=== PATIENT | female | born 1950 | race Asian ===

== ENCOUNTER → 2017-06-05 | Outpatient (CLI) | payer MEDICARE, OTHER ==
--- NOTE | 2017-06-05 14:43 | RAD ---
Bone densitometry scan, 06/05/2017: History: Ovarian failure screening The lumbar spine and right hip were examined utilizing a DEXA technique. The bone mineral density lumbar spine as measured from the L1-L4 levels is 1.12 g/sq cm. This yields a T score of -0.5 which is in the normal range. The lumbar spine T score on the 12/22/2008 exam was -0.3. The total T score at the right hip is 0.2 which is also in the normal range. The right hip T score on the previous study was 0.4. IMPRESSION: Continued normal bone mineral density measurements.
== END | disposition home or self-care (01) ==
LOC: DXRAD 13:23
PROVIDERS: ATTEND Family Medicine
DX: Z13.820 Encounter for screening for osteoporosis (principal); Z78.0 Asymptomatic menopausal state; E28.39 Other primary ovarian failure
CPT/HCPCS: 77080

== ENCOUNTER 2018-05-29 18:14 | Inpatient (IN) | payer MEDICARE, OTHER ==
[~2018-05-29] VITALS: Ht 160 cm; Wt 57.2 kg
[2018-05-29] MEDS ORDERED: IV NORMAL SALINE 1,000ML 1,000 ML IV ONE (18:45)
[2018-05-29] MEDS ORDERED: NITROGLYCERIN OINT 1 GM PACKET. TP ONE (18:45)
[2018-05-29] MEDS ORDERED: ASPIRIN 325 MG TABLET PO ONE (18:45)
--- NOTE | 2018-05-29 19:08 | PHYS DOC ---
Past History Past Medical History: Arrhythmia Past Surgical History: Cholecystectomy, Hysterectomy Smoking: Non-smoker Drug Use: None Adult General Chief Complaint Chief Complaint: CHEST PAIN HPI HPI Patient is 68 yo female who presents with complaint of chest pressure beginning at 1810 that started as she was getting out of the shower. Patient says she began to feel chest tightness, did not take any medication, and had her drive her her to hospital. Pt reports that she has had previous episodes of "irregular heartbeat" and follows with industrial engineering manager, whom she has an appointment with next week. She did not take an aspirin when the pain began. She has had indigestion before and says this episode feels different than her indigestion. She denies radiation of pain but does say that when the chest pressure began she had some shortness of breath. She denies shortness of breath , vomiting, extremity swelling, or headaches. She also denies recent travel but does state that she takes po estrogen following HAKEEM. Reports associated dizziness and nausea. Review of Systems Review of Systems Constitutional: Denies fever; admits chills Eyes: Denies change in visual acuity, redness, or eye pain [] HENT: Denies nasal congestion or sore throat [] Respiratory: Denies cough; admits shortness of breath Cardiovascular: Admits to chest pressure; occasional palpitations GI: Denies abdominal pain, vomiting, or diarrhea; reports nausea : Denies dysuria or hematuria [] Musculoskeletal: Denies back pain or joint pain [] Neurologic: Denies headache, focal weakness or sensory changes; reports dizziness Complete systems were reviewed and found to be within normal limits, except as documented in this note. Family History Family History Pt adopted and does not know bio family hx Current Medications Current Medications Current Medications Medications (Trade) Dose Ordered Sig/[facility] Start Time Stop Time Status Last Admin Dose Admin Aspirin (Maxwell Aspirin) 325 mg 1X ONCE 05/29/18 18:45 05/29/18 18:46 DC 05/29/18 18:49 325 MG Nitroglycerin (Nitro-Bid Oint) 0.5 inch 1X ONCE 05/29/18 18:45 05/29/18 18:46 DC 05/29/18 18:49 0.5 INCH Sodium Chloride 1,000 ml @ 1,000 mls/hr 1X ONCE 05/29/18 18:45 05/29/18 19:44 05/29/18 18:49 1,000 MLS/HR Allergies Allergies Allergies Coded Allergies Type Severity Reaction Last Updated Verified metoclopramide Allergy Unknown 05/29/18 Yes Physical Exam Physical Exam Constitutional: Well developed, well nourished, non-toxic appearance. [] HENT: Normocephalic, atraumatic, oropharynx moist, face symmetric, Eyes: PERRL, EOMI, conjunctiva normal, no discharge. Neck: Normal range of motion, supple, no stridor. [] Cardiovascular: Heart rate regular rhythm, no murmur Lungs & Thorax: Bilateral breath sounds clear to auscultation, no sternal tenderness to palpation [] Abdomen: Soft, mild epigastric tenderness Skin: Warm, dry, no erythema, no rash. [] Extremities: No tenderness, ROM intact, no edema. [] Neurologic: Alert and oriented X 3, normal motor function, normal sensory function, no focal deficits noted. Face symmetric, speech articulate, no vertical or horizontal nystagmus, muscle strength UE/LE 5/5. [] Current Patient Data Vital Signs Vital Signs Date Time Temp Pulse Resp B/P (MAP) Pulse Ox O2 Delivery O2 Flow Rate FiO2 05/29/18 18:49 68 166/61 EKG EKG @1830 HR 68 BPM, irregular rhythm. [] Radiology/Procedures Radiology/Procedures PROCEDURE: CT HEAD WO CONTRAST PQRS Compliance statement: One or more of the following individualized dose reduction techniques were utilized for this examination: 1. Automated exposure control. 2. Adjustment of the mA and/or kV according to patient size. 3. Use of iterative reconstruction technique. Indication:dizziness
TECHNIQUE: CT head without IV contrast COMPARISON:None FINDINGS: No pathologic extra-axial or intra-axial fluid collection. Mild diffuse cerebral atrophy. The ventricles and basal cisterns are within normal limits. No acute intracranial bleed. No focal loss of shafer-white differentiation. The orbits are within normal limits. No suspicious bony lesion. Visualized paranasal sinuses and mastoid air cells are clear. IMPRESSION: 1. No acute intracranial process. If concern for acute ischemic stroke is high, please consider MRI brain. Electronically signed by: Valente Delaney DO (05/29/2018 8:55 PM) [facility] PROCEDURE: CT ANGIOGRAPHY CHEST CT ANGIOGRAPHY CHEST Indication: chest pain, dizziness, elevated DDimer
Gave Omni 350 100ml iv
no medical hx
. Comparison: No comparison is available. Technique: After intravenous contrast administration, CT imaging was performed of the chest. MIP reconstructions were obtained. Exposure: One or more of the following individualized dose reduction techniques were utilized for this examination: 1. Automated exposure control 2. Adjustment of the mA and/or kV according to patient size 3. Use of iterative reconstruction technique. FINDINGS: Pulmonary arteries: No evidence of pulmonary embolism. Thoracic aorta: No evidence of aortic aneurysm. Thyroid gland: Visualized aspect is unremarkable. Lymph nodes: No significant enlargement Heart: No significant pericadial effusion. Esophagus: Unremarkable Pleural spaces: No significant effusion Lungs: No dominant airspace consolidation or large mass. Trachea and central airways: Patent Bones: No destructive process Upper abdomen: Slices through the upper abdomen are limited due to the technique. No obvious acute findings. External Soft Tissue: No acute findings. IMPRESSION: No evidence of pulmonary embolism or other acute abnormality. Electronically signed by: Germain Flower MD (05/29/2018 8:55 PM) [facility] Course & Med Decision Making Course & Med Decision Making Pt is 68 yo nonsmoking female with "irregular heart beat" who follows with a industrial engineering manager who presents to ED with acute onset nonradiating chest pressure, nausea, and dizziness beginning at 1810. She has had similar events in the past , was diagnosed with an arrhythmia from her industrial engineering manager however physician did not start medication. Physical exam significant for minimally elevated BP (166/ 61) and mild epigastric tenderness. EKG unremarkable. Labs significant for K 2.9 (given PO replacement) and elevated D-dimer. CT angio and CT head unremarkable. Patient given PO potassium, aspirin, nitro paste, fluids, zofran, and GI cocktail with no symptomatic relief. Pt voiced concern for worsening dizziness, new onset "tingling" down both legs, and concern about returning home. Although patient has minimal cardiovascular risk factors, HEART score 3 ( 1 pt hx, 1pt age> 65), and imaging is clear patient is complaining of worsening symptoms unresponsive to therapy. Discussed with patient that although she has appointment with industrial engineering manager in one week, her symptoms have become worse while in ED and admission for further workup is appropriate. Patient and voiced understanding and agreed with plan. Patient requiring admission for further evaluation and treatment. Discussed with Dr. Heath (hospitalist) who is in agreement with admission. Discussed findings and plan with patient and family, who acknowledge understanding and agreement. Dragon Disclaimer Dragon Disclaimer This electronic medical record was generated, in whole or in part, using a voice recognition dictation system. Departure Departure: Impression: Primary Impression: Chest pain Additional Impressions: Dizziness Hypokalemia Disposition: ADMITTED INPATIENT (Inpatient tele) Admitting Physician: Lucia Heath Condition: STABLE Referrals: BRANDON GUTIERREZ MD (PCP) Problem Qualifiers Primary Impression: Chest pain Chest pain type: unspecified Qualified Codes: R07.9 - Chest pain, unspecified GERMAIN BATES DO May 29, 2018 19:08
[2018-05-29 19:10] LABS: BASO % 1 % (0-3); EOS # 0.1 x10^3/uL (0.0-0.7); EOS % 2 % (0-3); HEMATOCRIT 40.3 % (36.0-47.0); HEMOGLOBIN 13.6 g/dL (12.0-15.5); LYMPH # 1.9 x10^3/uL (1.0-4.8); LYMPH % 27 % (24-48); MEAN CORPUSCULAR HEMOGLOBIN 32 pg (25-35); MEAN CORPUSCULAR HGB CONC 34 g/dL (31-37); MEAN CORPUSCULAR VOLUME 94 fL (79-100); MONO # 0.4 x10^3/uL (0.0-1.1); MONO % 6 % (0-9); NEUT # 4.6 x10^3uL (1.8-7.7); NEUT % 65 % (31-73); PLATELET COUNT 238 x10^3/uL (140-400); RED BLOOD COUNT 4.28 x10^6/uL (3.50-5.40); RED CELL DISTRIBUTION WIDTH 12.9 % (11.5-14.5); WHITE BLOOD COUNT 7.1 x10^3/uL (4.0-11.0)
[2018-05-29 19:28] LABS: ALBUMIN 4.1 g/dL (3.4-5.0); ALBUMIN/GLOBULIN RATIO 0.9 (1.0-1.7); CREATININE 0.6 mg/dL (0.6-1.0); GFR 99.7; MAGNESIUM 1.8 mg/dL (1.8-2.4); TOTAL BILIRUBIN 0.3 mg/dL (0.2-1.0); TOTAL PROTEIN 8.6 g/dL (6.4-8.2)
[2018-05-29 19:32] LABS: POTASSIUM 2.9 mmol/L (3.5-5.1)
[2018-05-29] MEDS ORDERED: POTASSIUM CHLORIDE 20 MEQ TABLET.ER. PO ONE (19:45)
[2018-05-29] MEDS ORDERED: ONDANSETRON PF 4 MG/2 ML VIAL. IV ONE (20:15)
[2018-05-29] MEDS ORDERED: LIDO:MAALOX 1:1 20 ML SINGLE DOSE. PO ONE (20:15)
[2018-05-29] MEDS ORDERED: IOHEXOL 350 MG/ML 100 ML VIAL. IV ONE (20:30)
--- NOTE | 2018-05-29 20:59 | RAD ---
PQRS Compliance statement: One or more of the following individualized dose reduction techniques were utilized for this examination: 1. Automated exposure control. 2. Adjustment of the mA and/or kV according to patient size. 3. Use of iterative reconstruction technique. Indication:dizziness
TECHNIQUE: CT head without IV contrast COMPARISON:None FINDINGS: No pathologic extra-axial or intra-axial fluid collection. Mild diffuse cerebral atrophy. The ventricles and basal cisterns are within normal limits. No acute intracranial bleed. No focal loss of shafer-white differentiation. The orbits are within normal limits. No suspicious bony lesion. Visualized paranasal sinuses and mastoid air cells are clear. IMPRESSION: 1. No acute intracranial process. If concern for acute ischemic stroke is high, please consider MRI brain. Electronically signed by: Valente Delaney DO (05/29/2018 8:55 PM) [facility]
--- NOTE | 2018-05-29 21:00 | RAD ---
CT ANGIOGRAPHY CHEST Indication: chest pain, dizziness, elevated DDimer
Gave Omni 350 100ml iv
no medical hx
. Comparison: No comparison is available. Technique: After intravenous contrast administration, CT imaging was performed of the chest. MIP reconstructions were obtained. Exposure: One or more of the following individualized dose reduction techniques were utilized for this examination: 1. Automated exposure control 2. Adjustment of the mA and/or kV according to patient size 3. Use of iterative reconstruction technique. FINDINGS: Pulmonary arteries: No evidence of pulmonary embolism. Thoracic aorta: No evidence of aortic aneurysm. Thyroid gland: Visualized aspect is unremarkable. Lymph nodes: No significant enlargement Heart: No significant pericadial effusion. Esophagus: Unremarkable Pleural spaces: No significant effusion Lungs: No dominant airspace consolidation or large mass. Trachea and central airways: Patent Bones: No destructive process Upper abdomen: Slices through the upper abdomen are limited due to the technique. No obvious acute findings. External Soft Tissue: No acute findings. IMPRESSION: No evidence of pulmonary embolism or other acute abnormality. Electronically signed by: Germain Flower MD (05/29/2018 8:55 PM) [facility]
[2018-05-29 22:10] VITALS: BP 158/68
[2018-05-29] MEDS ORDERED: ONDANSETRON PF 4 MG/2 ML VIAL. IV PRN (22:30)
[2018-05-29] MEDS: ONDANSETRON PF 4 MG/2 ML VIAL. IV PRN (22:42)
[2018-05-29] MEDS: IV NORMAL SALINE 1,000ML 1,000 ML IV SCH (22:42)
[2018-05-29] MEDS: MAG HYDROX/AL HYDROX/SIMETH 30 ML ORAL.SUSP PO PRN (23:19)
[2018-05-29 23:46] VITALS: BP 144/75
[2018-05-30] MEDS ORDERED: TURM538C PO (00:06)
[2018-05-30] MEDS ORDERED: ESTR1PAT87 TD (00:06)
[2018-05-30] MEDS ORDERED: OMEG1CAP6 PO (00:06)
[2018-05-30] MEDS ORDERED: UBID1CAP41 PO (00:06)
[2018-05-30] MEDS ORDERED: LACT1CAP8 PO (00:06)
[2018-05-30] MEDS ORDERED: UBID100C40 PO (00:06)
[2018-05-30] MEDS ORDERED: LORazepam 2 MG/ML VIAL IV PRN (00:15)
[2018-05-30] MEDS ORDERED: HYDROmorphone PF 1 MG/ML DISP.SYRIN IV PRN (00:15)
[2018-05-30] MEDS: PROMETHAZINE 25 MG TABLET. PO PRN ×2 (00:29→10:37)
[2018-05-30 00:52] LABS: CALCIUM 8.2 mg/dL (8.5-10.1); CREATININE 0.6 mg/dL (0.6-1.0); GFR 99.7; POTASSIUM 3.2 mmol/L (3.5-5.1)
[2018-05-30] MEDS: IV NORMAL SALINE 1,000ML 1,000 ML IV SCH ×2 (05:24→17:06)
[2018-05-30] MEDS ORDERED: POTASSIUM CHLORIDE 20 MEQ TABLET.ER. PO ONE ×2 (05:30→08:00)
[2018-05-30 05:52] VITALS: BP 98/52
--- NOTE | 2018-05-30 06:11 | EKG ---
[address] [address] Test Date: 2018-05-29 Test Time: 18:27:13 Pat Name: KI GARCIA Department: Room: Gender: F Torpedo Man: : 1950 Requested By: MALIK BATES Order Number: [id number] Reading MD: Measurements Intervals [place] Rate: 68 P: [place]: QRS: 41 QRSD: 96 T: 56 QT: 408 QTc: 434 Interpretive Statements IRREGULAR RHYTHM, NO P-WAVE FOUND INCOMPLETE RIGHT BUNDLE BRANCH BLOCK QRS(T) CONTOUR ABNORMALITY CONSIDER ANTEROLATERAL MYOCARDIAL DAMAGE POSSIBLY ABNORMAL ECG RI6.01 Unconfirmed report No previous ECG available for comparison
[2018-05-30 08:45] LABS: ALBUMIN 3.1 g/dL (3.4-5.0); ALBUMIN/GLOBULIN RATIO 0.8 (1.0-1.7); CALCIUM 7.4 mg/dL (8.5-10.1); CREATININE 0.6 mg/dL (0.6-1.0); GFR 99.7; POTASSIUM 3.9 mmol/L (3.5-5.1); TOTAL BILIRUBIN 0.5 mg/dL (0.2-1.0); TOTAL PROTEIN 6.9 g/dL (6.4-8.2)
[2018-05-30] MEDS: ONDANSETRON PF 4 MG/2 ML VIAL. IV PRN (10:08)
[2018-05-30] MEDS: MAG HYDROX/AL HYDROX/SIMETH 30 ML ORAL.SUSP PO PRN (10:37)
[2018-05-30 10:52] VITALS: BP 130/76
[2018-05-30] MEDS ORDERED: ASTA4CAP PO (10:59)
[2018-05-30] MEDS ORDERED: CYAN250012 PO (10:59)
[2018-05-30] MEDS ORDERED: CYAN10005 PO (10:59)
[2018-05-30] MEDS ORDERED: CRAN450C PO (10:59)
[2018-05-30] MEDS ORDERED: MAGN100T3 PO (10:59)
--- NOTE | 2018-05-30 13:43 | CARD ---
MR#: [id number] Date of Study: 05/30/2018 Ordering Physician: MAGDIEL GAXIOLA, Referring Physician: MILAN CM Tech: Ameena Trevino TAMAR APPROVED REPORT EXAM: Two-dimensional and M-mode echocardiogram with Doppler and color Doppler. Other Information Quality : AverageHR: 63bpm Rhythm : NSR INDICATION Chest Pain 2D DIMENSIONS RVDd2.1 (2.9-3.5cm)Left Atrium(2D)2.8 (1.6-4.0cm) IVSd0.7 (0.7-1.1cm)Aortic Root(2D)2.6 (2.0-3.7cm) LVDd4.4 (3.9-5.9cm)LVOT Diameter2.0 (1.8-2.4cm) PWd0.6 (0.7-1.1cm)LVDs2.0 (2.5-4.0cm) FS (%) 55.1 %SV75.7 ml LVEF(%)85.9 (>50%) M-Mode DIMENSIONS Left Atrium(MM)2.60 (2.5-4.0cm)Aortic Root2.52 (2.2-3.7cm) Aortic Valve AoV Peak Oziel.133.8cm/sAoV VTI28.1cm AO Peak GR.7.2mmHgLVOT Peak Oziel.92.3cm/s LVOT VTI 22.60cmAO Mean GR.4mmHg ELIZABETH (VMAX)2.82of5MMC (VTI)2.43cm2 Mitral Valve MV E Mxyrjkrm332.0cm/sMV DECEL AJOB102ab MV A Xxnlyjcs65.6cm/sE/A Ratio1.5 MV A [id number] Pulmonary Valve PV Peak Ehvhsflj87.9cm/sPV Peak Grad.4mmHg Tricuspid Valve TR P. Jwtdtnqf297kf/sRAP VROMZGKQ7uaLn TR Peak Gr.25fhUjVRZH45gfDk Pulmonary Vein S1 Nmoohsyt27.7cm/sD2 Yvstocxj92.5cm/s LEFT VENTRICLE The left ventricle is normal size. There is normal left ventricular wall thickness. The left ventricu lar systolic function is normal. The Ejection Fraction is 65-70%. There is normal LV segmental wall m otion. The left ventricular diastolic function and filling is normal for age. RIGHT VENTRICLE The right ventricle is normal size. There is normal right ventricular wall thickness. The right ventr icular systolic function is normal. ATRIA The left atrium size is normal. The right atrium size is normal. The interatrial septum is intact wit h no evidence for an atrial septal defect or patent foramen ovale as noted on 2-D or Doppler imaging. AORTIC VALVE The aortic valve is normal in structure and function. The aortic valve is trileaflet. Doppler and Col or Flow revealed no significant aortic regurgitation. There is no significant aortic valvular stenosi s. MITRAL VALVE The mitral valve is thickened but opens well. A borderline mitral valve prolapse is present. There is no mitral valve stenosis. Doppler and Color-flow revealed trace to mild mitral regurgitation. TRICUSPID VALVE The tricuspid valve is normal in structure and function. Doppler and Color Flow revealed trace tricus pid regurgitation. The PA pressure was estimated at 29 mmHg. There is no tricuspid valve prolapse or vegetation. There is no tricuspid valve stenosis. PULMONIC VALVE Pulmonic valve not well visualized. GREAT VESSELS The aortic root is normal in size. The ascending aorta is normal in size. The IVC is normal in size a nd collapses >50% with inspiration. PERICARDIAL EFFUSION There is no evidence of significant pericardial effusion. Critical Notification Critical Value: No <Conclusion> The left ventricular systolic function is normal. The Ejection Fraction is 65-70%. There is normal LV segmental wall motion. Trace to mild mitral regurgitation. Trace tricuspid regurgitation. The PA pressure was estimated at 29 mmHg. There is no evidence of significant pericardial effusion. Signed by : Murphy Sagastume, Electronically Approved : 05/30/2018 13:41:56
--- NOTE | 2018-05-30 14:47 | PDOC2 ---
CONSULT Date of Admission DATE: 05/30/18 TIME: 0900 Reason for Consult: cp Problem List Problems Medical Problems: (1) Chest pain Status: Acute (2) Dizziness Status: Acute (3) Hypokalemia Status: Acute History of Present Illness Ms Harrison is a 68 year old female who presented to the ED with complaints of chest pain. She does have a history of palpitations for which she follows with Dr Tubbs. She reports onset of chest pain about 1810 while she was getting out of the shower. She says she began to feel chest tightness which was not affected by exertion, position or deep inspiration. She was concerned so had her drive her her to hospital. While in the ED she began to report nausea, shortness of breath and tingling in arms and legs. She was admitted for observation and consult was called. She currently reports continued pain that has been constant since the start. She continues to descirbe the pain as noted above. This am she is nauseated and vomiting as well. She denies any recent illness or sick contacts. She denies fever or chills. she does have an appt next week with her primary planning analyst. She denies congestie symptoms, lightheadedness or syncope.. She also denies recent travel. She takes oral estrogen following HAKEEM multiple vitamins but no other medications Past Medical History palpitations, other shepherd she denies any significant medical history Past Surgical History: Cholecystectomy, Hysterectomy Family History unknown Social History non smoker, no illicit drugs, no significant ETOH Current Medications Current Medications Aspirin (Maxwell Aspirin) 325 mg 1X ONCE PO Last administered on 05/29/18at 18:49 ; Start 05/29/18 at 18:45; Stop 05/29/18 at 18:46; Status DC Sodium Chloride 1,000 ml @ 1,000 mls/hr 1X ONCE IV Last administered on 18:49; Start 05/29/18 at 18:45; Stop 05/29/18 at 19:44; Status DC Nitroglycerin (Nitro-Bid Oint) 0.5 inch 1X ONCE TP Last administered on at 18:49; Start 05/29/18 at 18:45; Stop 05/29/18 at 18:46; Status DC Potassium Chloride (Klor-Con) 40 meq 1X ONCE PO Last administered on at 20:06; Start 05/29/18 at 19:45; Stop 05/29/18 at 19:46; Status DC Multi-Ingredient Mouthwash/Gargle (Gi Cocktail) 20 ml 1X ONCE PO Last administered on 05/29/18at 20:17; Start 05/29/18 at 20:15; Stop 05/29/18 at 20:16 ; Status DC Ondansetron HCl (Zofran) 4 mg 1X ONCE IV Last administered on 05/29/18at 20:18 ; Start 05/29/18 at 20:15; Stop 05/29/18 at 20:16; Status DC Iohexol (Omnipaque 350 Mg/ml) 100 ml 1X ONCE IV Last administered on at 20:27; Start 05/29/18 at 20:30; Stop 05/29/18 at 20:31; Status DC Fentanyl Citrate (Fentanyl 2ml Vial) 25 mcg 1X ONCE IV Last administered on at 21:39; Start 05/29/18 at 21:45; Stop 05/29/18 at 21:46; Status DC Ondansetron HCl (Zofran) 4 mg PRN Q4HRS PRN IV NAUSEA/VOMITING Last administered on 05/30/18at 10:08; Start 05/29/18 at 21:30; Stop 05/30/18 at 21:29 Fentanyl Citrate (Fentanyl 2ml Vial) 25 mcg PRN Q2HR PRN IV PAIN; Start at 21:30; Stop 05/30/18 at 21:29 Sodium Chloride 1,000 ml @ 100 mls/hr Q10H IV Last administered on 05/30/18at 05:24; Start 05/29/18 at 21:27; Stop 05/30/18 at 21:26 Ondansetron HCl (Zofran) 4 mg PRN Q6HRS PRN IV NAUSEA/VOMITING; Start 05/29/18 at 22:30; Stop 05/29/18 at 22:32; Status DC Al Hydroxide/Mg Hydroxide (Mylanta Plus Xs) 30 ml PRN Q2HR PRN PO DYSPEPSIA Last administered on 05/30/18at 10:37; Start 05/29/18 at 22:30 Hydromorphone HCl (Dilaudid) 1 mg PRN Q3HRS PRN IV PAIN; Start 05/30/18 at 00: 15 Promethazine HCl (Phenergan) 25 mg PRN Q6HRS PRN PO NAUSEA/VOMITING Last administered on 05/30/18at 10:37; Start 05/30/18 at 00:15 Lorazepam (Ativan) 0.5 mg PRN Q4HRS PRN IV ANXIETY / AGITATION Last administered on 05/30/18at 00:29; Start 05/30/18 at 00:15 Potassium Chloride (Klor-Con) 40 meq 1X ONCE PO ; Start 05/30/18 at 08:00; Stop 05/30/18 at 08:00; Status DC Potassium Chloride (Klor-Con) 40 meq 1X ONCE PO Last administered on at 05:25; Start 05/30/18 at 05:30; Stop 05/30/18 at 05:31; Status DC Active Scripts Active Reported Vitamin B12 (Cyanocobalamin (Vitamin B-12)) 2,500 Mcg Tab.chew 1,000 Mcg PO DAILY Vitamin B-12 (Cyanocobalamin (Vitamin B-12)) 1,000 Mcg Tablet 1 Tab PO DAILY Magnesium (Magnesium Amino Acid Chelate) 100 Mg Tablet 200 Mg PO TID Cranberry (Cranberry Fruit Concentrate) 450 Mg Capsule 450 Mg PO BID Astaxanthin 4 Mg Capsule 3 Tab PO DAILY Co Q-10 100 Mg Softgel (Ubidecarenone/Vit E Acetate) 1 Each Capsule 1 Each PO DAILY Fish Oil 1,000 Mg Capsule (Mallie-3 Fatty Acids/Fish Oil) 1 Each Capsule 1 Each PO DAILY Probiotic (Lactobacillus Combo No.11) 1 Each Cap.sprink 1 Each PO DAILY Turmeric (Turmeric Root Extract) 538 Mg Capsule 538 Mg PO BID Estradiol 1 Each Patch.tdsw 1 Each TD TWICE WEEKLY Allergies: Coded Allergies: metoclopramide (Verified Allergy, Intermediate, 05/30/18) Review of System as per HPI or negative General: Alert, Oriented X3, mild distress HEENT: Atraumatic, EOMI Lungs: Clear to auscultation, Normal air movement Heart: Regular rate, Normal S1, Normal S2, No murmurs, Other (no gallops, clicks or rubs, + reproducible pain distal 1/2 sternum on palpation) Abdomen: Normal bowel sounds, Soft, Other (mild epigastric tenderness) Extremities: No cyanosis, No edema, Normal pulses Neuro: Normal speech, Strength at 5/5 X4 ext Psych/Mental Status: Mental status NL, Mood NL VITALS Vital Signs Date Time Temp Pulse Resp B/P (MAP) Pulse Ox O2 Delivery O2 Flow Rate FiO2 05/30/18 10:52 97.9 66 18 130/76 (94) 95 Room Air Labs Laboratory Tests Test 05/29/18 18:45 05/30/18 00:30 05/30/18 03:30 05/30/18 08:08 White Blood Count 7.1 x10^3/uL (4.0-11.0) Red Blood Count 4.28 x10^6/uL (3.50-5.40) Hemoglobin 13.6 g/dL (12.0-15.5) Hematocrit 40.3 % (36.0-47.0) Mean Corpuscular Volume 94 fL (79-100) Mean Corpuscular Hemoglobin 32 pg (25-35) Mean Corpuscular Hemoglobin Concent 34 g/dL (31-37) Red Cell Distribution Width 12.9 % (11.5-14.5) Platelet Count 238 x10^3/uL (140-400) Neutrophils (%) (Auto) 65 % (31-73) Lymphocytes (%) (Auto) 27 % (24-48) Monocytes (%) (Auto) 6 % (0-9) Eosinophils (%) (Auto) 2 % (0-3) Basophils (%) (Auto) 1 % (0-3) Neutrophils # (Auto) 4.6 x10^3uL (1.8-7.7) Lymphocytes # (Auto) 1.9 x10^3/uL (1.0-4.8) Monocytes # (Auto) 0.4 x10^3/uL (0.0-1.1) Eosinophils # (Auto) 0.1 x10^3/uL (0.0-0.7) Basophils # (Auto) 0.0 x10^3/uL (0.0-0.2) Prothrombin Time 10.1 SEC (9.4-11.4) Prothromb Time International Ratio 1.0 (0.9-1.1) Activated Partial Thromboplast Time 25 SEC (23-33) Sodium Level 136 mmol/L (136-145) 135 mmol/L (136-145) 137 mmol/L (136-145) Potassium Level 2.9 mmol/L (3.5-5.1) 3.2 mmol/L (3.5-5.1) 3.9 mmol/L (3.5-5.1) Chloride Level 97 mmol/L (98-107) 100 mmol/L (98-107) 104 mmol/L (98-107) Carbon Dioxide Level 25 mmol/L (21-32) 24 mmol/L (21-32) 26 mmol/L (21-32) Anion Gap 14 (6-14) 11 (6-14) 7 (6-14) Blood Urea Nitrogen 27 mg/dL (7-20) 18 mg/dL (7-20) 17 mg/dL (7-20) Creatinine 0.6 mg/dL (0.6-1.0) 0.6 mg/dL (0.6-1.0) 0.6 mg/dL (0.6-1.0) Estimated GFR (Cockcroft-Gault) 99.7 99.7 99.7 BUN/Creatinine Ratio 45 (6-20) 28 (6-20) Glucose Level 130 mg/dL (70-99) 136 mg/dL (70-99) 105 mg/dL (70-99) Calcium Level 9.0 mg/dL (8.5-10.1) 8.2 mg/dL (8.5-10.1) 7.4 mg/dL (8.5-10.1) Magnesium Level 1.8 mg/dL (1.8-2.4) Total Bilirubin 0.3 mg/dL (0.2-1.0) 0.5 mg/dL (0.2-1.0) Aspartate Amino Transf (AST/SGOT) 24 U/L (15-37) 21 U/L (15-37) Alanine Aminotransferase (ALT/SGPT) 41 U/L (14-59) 33 U/L (14-59) Alkaline Phosphatase 92 U/L (46-116) 75 U/L (46-116) Creatine Kinase 104 U/L (26-192) Creatine Kinase MB (Mass) 1.6 ng/mL (0.0-3.6) Creatine Kinase MB Relative Index 1.5 % (0-4) Troponin I Quantitative < 0.017 ng/mL (0-0.055) < 0.017 ng/mL (0-0.055) < 0.017 ng/mL (0-0.055) OZ-Ftw-U-Type Natriuretic Peptide 108 pg/mL (0-124) Total Protein 8.6 g/dL (6.4-8.2) 6.9 g/dL (6.4-8.2) Albumin 4.1 g/dL (3.4-5.0) 3.1 g/dL (3.4-5.0) Albumin/Globulin Ratio 0.9 (1.0-1.7) 0.8 (1.0-1.7) Lipase 165 U/L (73-393) Images CT head- no acute intracranial process CTA- no PE or other acute abn EKG sinus rhythm without acute abn Assessment/Plan CP atypical, [place] ruled out. no acute ekg changes. echo pending, check lipids. continue aspirin. no betablocker due to mild hypotension nausea/vomiting - per PCP mild hypokalemia - replaced and now normal MAGDIEL GAXIOLA SPECIALTY PERSON May 30, 2018 14:47
[2018-05-30 15:28] VITALS: BP 106/62
--- NOTE | 2018-05-30 16:00 | HP ---
ADMIT DATE: 05/29/2018 HISTORY OF PRESENT ILLNESS: The patient is a 68-year-old Swedish [place]ian female patient who came to the Emergency Room complaining of chest pain, mostly epigastric and lower chest while she was getting out of the shower, she stated that she began to feel chest tightness. She has not taken medication and she was brought to the hospital by her . She stated that she has a previous episode of irregular heartbeat and follows with a packer insulation whom she has an appointment with next week. She did not take any aspirin when the pain began. She had had indigestion before and stated that the episodes feels different than her indigestion. She denied any radiation of the pain. Said that she has some nausea, but no vomiting. She has had some shortness of breath, but denied any diaphoresis. She is not on any medication by prescription except her estrogen. She was extensively investigated in the Emergency Room. Her EKG showed that she was in sinus rhythm with a heart rate of 68 beats per minute, has had a CT scan of the head with IV contrast, which basically showed no acute intracranial pressure and CT angio of the chest showed that there is no evidence of pulmonary embolism or acute abnormality and therefore, the patient was admitted to rule out to do more sets of cardiac enzyme and to consult the packer insulation. PAST MEDICAL HISTORY: Unremarkable. PAST SURGICAL HISTORY: Significant for total abdominal hysterectomy and bilateral salpingo-oophorectomy, appendectomy, cholecystectomy, dysphagia, esophagogastroduodenoscopy and colonoscopy. ALLERGIES: SHE IS ALLERGIC TO REGLAN AND FENTANYL. MEDICATIONS: She is currently on following medications: She is on omega 3 fatty acid 1000 mg once a day, magnesium amino acid chelate 200 mg 3 times a day, lactobacillus 1 capsule daily, estradiol 1 patch applied topically twice weekly, cyanocobalamin 1000 mcg once a day, Cyanocobalamin 2000 mcg chewable tablet once a day. Astaxanthin 4 mg once a day, cranberry fruit concentrate 450 mg p.o. b.i.d., turmeric root extract 538 mg twice a day and CoQ10 100 mg soft gel one tablet daily. FAMILY HISTORY: Unremarkable. She is adopted. She does not know sisters or brothers. She does not know her biological parents. SOCIAL HISTORY: She is , has 1 daughter from her previous marriage. She never smoked, does not drink alcohol. 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 REVIEW OF SYSTEMS: The patient denied any blurring of vision, cataract, glaucoma or macular degeneration. Denied any earache, tinnitus or sensorineural deafness. Denied any nosebleeds, stuffy nose or postnasal drip. Denied any sore throat, sore tongue, toothache, hoarseness of voice or difficulty swallowing. Does have some nausea and had vomited once. Denied any hematemesis, melena or hematochezia. Denied any dysuria, frequency or hematuria. Did complain of chest pain. In fact, mostly epigastric pain. PHYSICAL EXAMINATION: GENERAL: On arrival to the Emergency Room, the patient is well-developed, well nourished 68-year-old Swedish [place] female patient in no apparent distress. VITAL SIGNS: Her heart rate was 68, blood pressure was ____, temperature was 98, respiratory rate was 20, and oxygen saturation was 96%. HEAD, EYES, EARS, NOSE AND THROAT: Showed normocephalic, atraumatic. NECK: Supple. HEART: Showed normal first and second heart sounds. No gallop, rub or murmur. CHEST: Clear to auscultation ABDOMEN: Scaphoid, soft with tenderness mostly in the epigastric area. There is no guarding or rigidity. No organomegaly. All hernial orifices intact. Bowel sounds normal. NEUROLOGIC: She was awake, alert, responding appropriately. Cranial nerves intact. EXTREMITIES: She moves extremities without difficulty. LABORATORY DATA: On arrival showed a serum sodium 136, potassium 2.9, chloride 97, bicarbonate 25, anion gap of 14, BUN 27, creatinine 0.6, estimated GFR was 99.7 mL per minute. Her glucose was 130, calcium 9, magnesium was 1.8. Total bilirubin, AST, ALT, alkaline phosphatase were normal. Total protein was 8.6, albumin was 4.1, lipase 165. Her prothrombin time was 10.1, INR of 1, aPTT was 25. Her CT scan of the head showed no acute intracranial process and CT angio of the chest showed that the lungs no dominant airspace consolidation or large masses. Trachea and central airway is patent. Bone no destructive process. Upper abdomen showed a limited, but no obvious acute finding. IMPRESSION: There is no evidence of pulmonary embolism or acute abnormality. PLAN: The patient was admitted to do 2 more sets of cardiac enzymes, consult Cardiology team. MILAN CM MD DR: SHAY/yong JOB#: [id number] / [id number]
[2018-05-30 19:35] VITALS: BP 113/57
--- NOTE | 2018-05-30 19:48 | PN ---
DATE: SUBJECTIVE: The patient was admitted yesterday with epigastric and lower chest pain. She was extensively investigated. She had had an EKG, chest x-ray, CT scan of the head and CT scan of the chest with PE protocol, they were all normal. Her first set of cardiac enzymes showed troponin less than 0.107. She was admitted and overnight she continued to have severe nausea, dizziness and tingling and numbness of all her extremities. She was given fentanyl and that made her pain worse. We gave her Ativan and apparently that was very effective and Zofran was not effective for her nausea. Now she did respond very well to Phenergan orally. She has had 2 more sets of cardiac enzymes that were negative and showed no evidence of myocardial infarction. She was seen in consultation by the Cardiology team and had had an echocardiogram, which basically showed that left ventricular systolic function is normal, ejection fraction is 65-70%. She has normal left ventricular segmental wall motion, [id number] mitral regurgitation, trace tricuspid regurgitation. The pulmonary artery pressure was estimated at 29 mmHg. There is no evidence of significant pericardial effusion. Unfortunately, the patient continued to complain of severe epigastric pain, had also some nausea this morning and vomited once. Although the Phenergan was effective in improving her nausea. PHYSICAL EXAMINATION: GENERAL: When I saw her this afternoon, she was resting slightly propped up in bed, in no apparent respiratory distress. She was slightly pale, but no jaundice, cyanosis or thyromegaly. No jugular venous distension. No lower limb edema. VITAL SIGNS: Her heart rate was 66, blood pressure 130/76, temperature was 97.9, respiratory rate was 18 and oxygen saturation was 95% on room air. HEAD, EYES, EARS, NOSE AND THROAT: Showed normocephalic, atraumatic. NECK: Supple. HEART: Showed normal first and second heart sounds with no gallop, rub or murmur. CHEST: Clear to auscultation. No crepitation or rhonchi. ABDOMEN: Distended, soft, nontender. No guarding or rigidity. No organomegaly. All hernial orifice intact. Bowel sounds normal. NEUROLOGIC: She was awake, alert, responding appropriately. All cranial nerves intact. She moves extremities without difficulty. LABORATORY DATA: Her lab work this morning showed a serum sodium 137, potassium 3.9, chloride 104, bicarbonate 20, anion gap of 7, BUN 17, creatinine 0.6, estimated GFR was 99 mL per minute. Her glucose 105, calcium was 7.4. Total bilirubin, AST, ALT, alkaline phosphatase were normal. Total protein was 6.9 and albumin was 3.1. ASSESSMENT: In summary, this is a 68-year-old Greenlandic [place]an female patient who presented with epigastric and lower chest pain, nausea, vomiting, dizziness and tingling and numbness at least some of her complaints are consistent with severe anxiety as it has responded well to Ativan. She definitely has no evidence of myocardial infarction. Her echocardiogram showed that she has ejection fraction is normal 65-70%. PLAN: My plan is obviously start her on Protonix for possible gastritis, although she denied taking any nonsteroidal anti-inflammatory medication. I would also check her serum lipase and we will decide on further management accordingly. MILAN CM MD DR: SHAY/yong JOB#: [id number] / [id number]
[2018-05-30] MEDS: PANTOPRAZOLE IV 40 MG VIAL. IVP SCH (20:22)
[2018-05-31 06:03] VITALS: BP 101/53
[2018-05-31 06:42] LABS: BASO % 1 % (0-3); EOS # 0.1 x10^3/uL (0.0-0.7); EOS % 2 % (0-3); HEMATOCRIT 35.6 % (36.0-47.0); HEMOGLOBIN 11.9 g/dL (12.0-15.5); LYMPH # 1.4 x10^3/uL (1.0-4.8); LYMPH % 38 % (24-48); MEAN CORPUSCULAR HEMOGLOBIN 32 pg (25-35); MEAN CORPUSCULAR HGB CONC 33 g/dL (31-37); MEAN CORPUSCULAR VOLUME 95 fL (79-100); MONO # 0.4 x10^3/uL (0.0-1.1); MONO % 10 % (0-9); NEUT # 1.8 x10^3uL (1.8-7.7); NEUT % 49 % (31-73); PLATELET COUNT 196 x10^3/uL (140-400); RED BLOOD COUNT 3.74 x10^6/uL (3.50-5.40); RED CELL DISTRIBUTION WIDTH 13.1 % (11.5-14.5); WHITE BLOOD COUNT 3.7 x10^3/uL (4.0-11.0)
[2018-05-31 06:54] LABS: ALBUMIN 2.8 g/dL (3.4-5.0); ALBUMIN/GLOBULIN RATIO 0.8 (1.0-1.7); CALCIUM 7.3 mg/dL (8.5-10.1); CREATININE 0.6 mg/dL (0.6-1.0); GFR 99.7; POTASSIUM 3.9 mmol/L (3.5-5.1); TOTAL BILIRUBIN 0.4 mg/dL (0.2-1.0); TOTAL PROTEIN 6.2 g/dL (6.4-8.2)
[2018-05-31] MEDS: PANTOPRAZOLE IV 40 MG VIAL. IVP SCH (09:20)
[2018-05-31 10:27] VITALS: BP 120/68
--- NOTE | 2018-05-31 11:29 | PDOC ---
PROGRESS NOTES Diagnosis Problem Problems Medical Problems: (1) Chest pain Status: Acute (2) Dizziness Status: Acute (3) Hypokalemia Status: Acute Assessment Problems Medical Problems: (1) Chest pain Status: Acute (2) Dizziness Status: Acute (3) Hypokalemia Status: Acute CP atypical, VT ruled out. no acute ekg changes. echo with normal LV function and wall motion. continue aspirin. no betablocker due to mild hypotension. keep follow up with primary Preventive Medicine Physician next week. nausea/vomiting - resolved, mgmt per PCP mild hypokalemia - replaced and now normal Subjective CP, nausea and vomiting all resolved. feels much better, "ready to go home" Objective Vital Signs Date Time Temp Pulse Resp B/P (MAP) Pulse Ox O2 Delivery O2 Flow Rate FiO2 05/31/18 10:27 98.1 58 20 120/68 (85) 97 Room Air Intake and Output 05/31/18 07:01 Intake Total 2675 ml Balance 2675 ml Intake Oral 560 ml IV Total 2115 ml # Voids 4 Abdomen: Normal bowel sounds, Soft, No tenderness Heart: Normal S1, Normal S2, Other (no gallops, clicks or rubs) Extremities: No cyanosis, No edema, Normal pulses General: Alert, Oriented X3, Cooperative, No acute distress HEENT: Atraumatic, EOMI Lungs: Clear to auscultation, Normal air movement Neuro: Normal speech, Strength at 5/5 X4 ext Psych/Mental Status: Mental status NL, Mood NL Review of Relevant I have reviewed the following items rose (where applicable) has been applied. Labs Laboratory Tests Test 05/29/18 18:45 05/30/18 00:30 05/30/18 03:30 05/30/18 08:08 White Blood Count 7.1 x10^3/uL (4.0-11.0) Red Blood Count 4.28 x10^6/uL (3.50-5.40) Hemoglobin 13.6 g/dL (12.0-15.5) Hematocrit 40.3 % (36.0-47.0) Mean Corpuscular Volume 94 fL (79-100) Mean Corpuscular Hemoglobin 32 pg (25-35) Mean Corpuscular Hemoglobin Concent 34 g/dL (31-37) Red Cell Distribution Width 12.9 % (11.5-14.5) Platelet Count 238 x10^3/uL (140-400) Neutrophils (%) (Auto) 65 % (31-73) Lymphocytes (%) (Auto) 27 % (24-48) Monocytes (%) (Auto) 6 % (0-9) Eosinophils (%) (Auto) 2 % (0-3) Basophils (%) (Auto) 1 % (0-3) Neutrophils # (Auto) 4.6 x10^3uL (1.8-7.7) Lymphocytes # (Auto) 1.9 x10^3/uL (1.0-4.8) Monocytes # (Auto) 0.4 x10^3/uL (0.0-1.1) Eosinophils # (Auto) 0.1 x10^3/uL (0.0-0.7) Basophils # (Auto) 0.0 x10^3/uL (0.0-0.2) Prothrombin Time 10.1 SEC (9.4-11.4) Prothromb Time International Ratio 1.0 (0.9-1.1) Activated Partial Thromboplast Time 25 SEC (23-33) Sodium Level 136 mmol/L (136-145) 135 mmol/L (136-145) 137 mmol/L (136-145) Potassium Level 2.9 mmol/L (3.5-5.1) 3.2 mmol/L (3.5-5.1) 3.9 mmol/L (3.5-5.1) Chloride Level 97 mmol/L (98-107) 100 mmol/L (98-107) 104 mmol/L (98-107) Carbon Dioxide Level 25 mmol/L (21-32) 24 mmol/L (21-32) 26 mmol/L (21-32) Anion Gap 14 (6-14) 11 (6-14) 7 (6-14) Blood Urea Nitrogen 27 mg/dL (7-20) 18 mg/dL (7-20) 17 mg/dL (7-20) Creatinine 0.6 mg/dL (0.6-1.0) 0.6 mg/dL (0.6-1.0) 0.6 mg/dL (0.6-1.0) Estimated GFR (Cockcroft-Gault) 99.7 99.7 99.7 BUN/Creatinine Ratio 45 (6-20) 28 (6-20) Glucose Level 130 mg/dL (70-99) 136 mg/dL (70-99) 105 mg/dL (70-99) Calcium Level 9.0 mg/dL (8.5-10.1) 8.2 mg/dL (8.5-10.1) 7.4 mg/dL (8.5-10.1) Magnesium Level 1.8 mg/dL (1.8-2.4) Total Bilirubin 0.3 mg/dL (0.2-1.0) 0.5 mg/dL (0.2-1.0) Aspartate Amino Transf (AST/SGOT) 24 U/L (15-37) 21 U/L (15-37) Alanine Aminotransferase (ALT/SGPT) 41 U/L (14-59) 33 U/L (14-59) Alkaline Phosphatase 92 U/L (46-116) 75 U/L (46-116) Creatine Kinase 104 U/L (26-192) Creatine Kinase MB (Mass) 1.6 ng/mL (0.0-3.6) Creatine Kinase MB Relative Index 1.5 % (0-4) Troponin I Quantitative < 0.017 ng/mL (0-0.055) < 0.017 ng/mL (0-0.055) < 0.017 ng/mL (0-0.055) SW-Kec-G-Type Natriuretic Peptide 108 pg/mL (0-124) Total Protein 8.6 g/dL (6.4-8.2) 6.9 g/dL (6.4-8.2) Albumin 4.1 g/dL (3.4-5.0) 3.1 g/dL (3.4-5.0) Albumin/Globulin Ratio 0.9 (1.0-1.7) 0.8 (1.0-1.7) Lipase 165 U/L (73-393) 121 U/L (73-393) Erythrocyte Sedimentation Rate 11 (0-25) Lactate Dehydrogenase 172 U/L (81-234) C-Reactive Protein 3.0 mg/L (0-3.3) Triglycerides Level 45 mg/dL (0-150) Cholesterol Level 175 mg/dL (0-200) LDL Cholesterol, Calculated 102 mg/dL (0-100) VLDL Cholesterol, Calculated 9 mg/dL (0-40) Non-HDL Cholesterol Calculated 111 mg/dL (0-129) HDL Cholesterol 64 mg/dL (40-60) Cholesterol/HDL Ratio 2.0 Test 05/30/18 14:30 05/31/18 06:12 D-Dimer (Evita) 2.40 mg/L (0.00-0.50) White Blood Count 3.7 x10^3/uL (4.0-11.0) Red Blood Count 3.74 x10^6/uL (3.50-5.40) Hemoglobin 11.9 g/dL (12.0-15.5) Hematocrit 35.6 % (36.0-47.0) Mean Corpuscular Volume 95 fL (79-100) Mean Corpuscular Hemoglobin 32 pg (25-35) Mean Corpuscular Hemoglobin Concent 33 g/dL (31-37) Red Cell Distribution Width 13.1 % (11.5-14.5) Platelet Count 196 x10^3/uL (140-400) Neutrophils (%) (Auto) 49 % (31-73) Lymphocytes (%) (Auto) 38 % (24-48) Monocytes (%) (Auto) 10 % (0-9) Eosinophils (%) (Auto) 2 % (0-3) Basophils (%) (Auto) 1 % (0-3) Neutrophils # (Auto) 1.8 x10^3uL (1.8-7.7) Lymphocytes # (Auto) 1.4 x10^3/uL (1.0-4.8) Monocytes # (Auto) 0.4 x10^3/uL (0.0-1.1) Eosinophils # (Auto) 0.1 x10^3/uL (0.0-0.7) Basophils # (Auto) 0.0 x10^3/uL (0.0-0.2) Sodium Level 142 mmol/L (136-145) Potassium Level 3.9 mmol/L (3.5-5.1) Chloride Level 109 mmol/L (98-107) Carbon Dioxide Level 27 mmol/L (21-32) Anion Gap 6 (6-14) Blood Urea Nitrogen 16 mg/dL (7-20) Creatinine 0.6 mg/dL (0.6-1.0) Estimated GFR (Cockcroft-Gault) 99.7 BUN/Creatinine Ratio 27 (6-20) Glucose Level 86 mg/dL (70-99) Calcium Level 7.3 mg/dL (8.5-10.1) Total Bilirubin 0.4 mg/dL (0.2-1.0) Aspartate Amino Transf (AST/SGOT) 19 U/L (15-37) Alanine Aminotransferase (ALT/SGPT) 30 U/L (14-59) Alkaline Phosphatase 65 U/L (46-116) Total Protein 6.2 g/dL (6.4-8.2) Albumin 2.8 g/dL (3.4-5.0) Albumin/Globulin Ratio 0.8 (1.0-1.7) Medications Current Medications Aspirin (ActionX Aspirin) 325 mg 1X ONCE PO Last administered on 05/29/18at 18:49 ; Start 05/29/18 at 18:45; Stop 05/29/18 at 18:46; Status DC Sodium Chloride 1,000 ml @ 1,000 mls/hr 1X ONCE IV Last administered on at 18:49; Start 05/29/18 at 18:45; Stop 05/29/18 at 19:44; Status DC Nitroglycerin (Nitro-Bid Oint) 0.5 inch 1X ONCE TP Last administered on at 18:49; Start 05/29/18 at 18:45; Stop 05/29/18 at 18:46; Status DC Potassium Chloride (Klor-Con) 40 meq 1X ONCE PO Last administered on at 20:06; Start 05/29/18 at 19:45; Stop 05/29/18 at 19:46; Status DC Multi-Ingredient Mouthwash/Gargle (Gi Cocktail) 20 ml 1X ONCE PO Last administered on 05/29/18at 20:17; Start 05/29/18 at 20:15; Stop 05/29/18 at 20:16 ; Status DC Ondansetron HCl (Zofran) 4 mg 1X ONCE IV Last administered on 05/29/18at 20:18 ; Start 05/29/18 at 20:15; Stop 05/29/18 at 20:16; Status DC Iohexol (Omnipaque 350 Mg/ml) 100 ml 1X ONCE IV Last administered on at 20:27; Start 05/29/18 at 20:30; Stop 05/29/18 at 20:31; Status DC Fentanyl Citrate (Fentanyl 2ml Vial) 25 mcg 1X ONCE IV Last administered on at 21:39; Start 05/29/18 at 21:45; Stop 05/29/18 at 21:46; Status DC Ondansetron HCl (Zofran) 4 mg PRN Q4HRS PRN IV NAUSEA/VOMITING Last administered on 05/30/18at 10:08; Start 05/29/18 at 21:30; Stop 05/30/18 at 21:29 ; Status DC Fentanyl Citrate (Fentanyl 2ml Vial) 25 mcg PRN Q2HR PRN IV PAIN; Start at 21:30; Stop 05/30/18 at 21:29; Status DC Sodium Chloride 1,000 ml @ 100 mls/hr Q10H IV Last administered on 05/30/18at 17:06; Start 05/29/18 at 21:27; Stop 05/30/18 at 21:26; Status DC Ondansetron HCl (Zofran) 4 mg PRN Q6HRS PRN IV NAUSEA/VOMITING; Start 05/29/18 at 22:30; Stop 05/29/18 at 22:32; Status DC Al Hydroxide/Mg Hydroxide (Mylanta Plus Xs) 30 ml PRN Q2HR PRN PO DYSPEPSIA Last administered on 05/30/18at 10:37; Start 05/29/18 at 22:30 Hydromorphone HCl (Dilaudid) 1 mg PRN Q3HRS PRN IV PAIN; Start 05/30/18 at 00: 15 Promethazine HCl (Phenergan) 25 mg PRN Q6HRS PRN PO NAUSEA/VOMITING Last administered on 05/30/18at 10:37; Start 05/30/18 at 00:15 Lorazepam (Ativan) 0.5 mg PRN Q4HRS PRN IV ANXIETY / AGITATION Last administered on 05/30/18at 00:29; Start 05/30/18 at 00:15 Potassium Chloride (Klor-Con) 40 meq 1X ONCE PO ; Start 05/30/18 at 08:00; Stop 05/30/18 at 08:00; Status DC Potassium Chloride (Klor-Con) 40 meq 1X ONCE PO Last administered on at 05:25; Start 05/30/18 at 05:30; Stop 05/30/18 at 05:31; Status DC Pantoprazole Sodium (Protonix Vial) 40 mg BID IVP Last administered on at 09:20; Start 05/30/18 at 21:00 Active Scripts Active Reported Vitamin B12 (Cyanocobalamin (Vitamin B-12)) 2,500 Mcg Tab.chew 1,000 Mcg PO DAILY Vitamin B-12 (Cyanocobalamin (Vitamin B-12)) 1,000 Mcg Tablet 1 Tab PO DAILY Magnesium (Magnesium Amino Acid Chelate) 100 Mg Tablet 200 Mg PO TID Cranberry (Cranberry Fruit Concentrate) 450 Mg Capsule 450 Mg PO BID Astaxanthin 4 Mg Capsule 3 Tab PO DAILY Co Q-10 100 Mg Softgel (Ubidecarenone/Vit E Acetate) 1 Each Capsule 1 Each PO DAILY Fish Oil 1,000 Mg Capsule (Carteret-3 Fatty Acids/Fish Oil) 1 Each Capsule 1 Each PO DAILY Probiotic (Lactobacillus Combo No.11) 1 Each Cap.sprink 1 Each PO DAILY Turmeric (Turmeric Root Extract) 538 Mg Capsule 538 Mg PO BID Estradiol 1 Each Patch.tdsw 1 Each TD TWICE WEEKLY Vitals/I & O Vital Sign - Last 24 Hours 05/30/18 05/30/18 05/30/18 05/30/18 15:28 19:15 19:35 23:09 Temp 97.5 98.1 Pulse 62 55 49 Resp 18 18 B/P (MAP) 106/62 (77) 113/57 (75) Pulse Ox 97 97 O2 Delivery Room Air Room Air Room Air 05/31/18 05/31/18 05/31/18 06:03 08:06 10:27 Temp 98.3 98.1 Pulse 54 58 Resp 18 20 B/P (MAP) 101/53 (69) 120/68 (85) Pulse Ox 98 97 O2 Delivery Room Air Room Air Room Air Intake and Output 05/30/18 05/30/18 05/31/18 15:01 23:01 07:01 Intake Total 1438 ml 1237 ml Balance 1438 ml 1237 ml MAGDIEL GAXIOLA APRN May 31, 2018 11:29
--- NOTE | 2018-05-31 14:00 | DS ---
DATE OF DISCHARGE: 05/29/2018 HOSPITAL COURSE: The patient is a 68-year-old Syriac Russian female patient who was admitted with a complaint of chest pain. The pain was started while she was getting out of the shower. She also describes as chest tightness, not affected by exertion, position or deep inspiration. It was so bad that her drove her to the Emergency Room, where she also reported nausea and shortness of breath, tingling in arms and legs. She was admitted and has had 3 sets of cardiac enzymes to rule out myocardial infarction. She was seen by the Cardiology team and in fact, she had an echocardiogram, which showed that her left ventricular systolic function is normal, ejection fraction 65% -70%. She has normal left ventricular segmental wall motion. We did start her on IV fluid. Zofran was not effective as well as fentanyl that made her chest pain worse, we switched her to Compazine and Ativan as well as hydromorphone. We did add also Protonix 40 mg IV twice a day and her chest pain has largely subsided, tingling has resolved. She had no more nausea or vomiting. We did start her on a clear liquid diet and advanced to full liquid diet this morning and she tolerated to regular diet this afternoon and as she remained stable, she has no more dizziness, no chest pain, no shortness of breath, no chest tightness, had myocardial infarction. The myocardial infarction was ruled out. Her chest CT angio showed no evidence of dissection or pulmonary embolism and the patient was discharged home to continue her home medications and follow with her primary care physician and primary property management supervisor. PHYSICAL EXAMINATION: GENERAL: When I saw her this afternoon, she looked well and was clearly in no apparent respiratory distress. No pallor, jaundice, cyanosis, or thyromegaly. No jugular venous distension. No limb edema. VITAL SIGNS: Her heart rate was 58, blood pressure was 120/68, temperature was 98.1, respiratory rate was 20, and oxygen saturation was 97%. HEAD, EYES, EARS, NOSE, AND THROAT: Showed normocephalic, atraumatic. NECK: Supple. HEART: Showed normal first and second heart sounds. No gallop, rub, or murmur. CHEST: Clear to auscultation. No crepitation or rhonchi. ABDOMEN: Distended, soft, nontender. No guarding or rigidity. No organomegaly. All hernial orifice intact. Bowel sounds normal. NEUROLOGICAL: She is awake, alert, responding appropriately. All cranial nerves intact. She moves extremities without difficulty. She ambulates without assistance or assistive devices. LABORATORY DATA: Her lab work as of this morning showed a white cell count 3700, hemoglobin 12, hematocrit 36, MCV 95, and platelet count of 196,000. Her prothrombin time was 10.1, INR 1, aPTT was 25, and D-dimer was 2.4 mg/dL. Her chemistry this morning showed a serum sodium 142, potassium 3.9, chloride 109, bicarbonate 27, anion gap of 6, BUN 16, creatinine 0.6, estimated GFR was 99 mL per minute. Her glucose was 86, calcium was 7.3. AST, ALT, alkaline phosphatase were normal. LDH was normal. Total protein was 6.2, albumin 2.8, and her lipase was done twice and both were within normal range. The patient was discharged home to continue on her omega 3 fatty acid 1000 mg once a day, turmeric root extract 358 mg twice a day, CoQ10 100 mg once a day. She is also on magnesium 200 mg 3 times a day, lactobacillus combo 1 daily, estradiol 1 mg twice weekly, cyanocobalamin for vitamin B12 1000 mcg once a day, cranberry fruit extract 450 mg twice a day, and astaxanthin 4 mg 3 capsules daily. FINAL DISCHARGE DIAGNOSES: 1. Chest pain, myocardial infarction ruled out. 2. Hypokalemia, resolved. 3. Dizziness, resolved. MILAN CM MD DR: SHAY/yong JOB#: [id number] / [id number]
== END 2018-05-31 15:00 | disposition home or self-care (01) | DRG 313 ==
LOC: ER 18:14 → 1 SOUTH 21:22 → ER 21:54
PROVIDERS: ADMIT Internal Medicine; ATTEND Internal Medicine
DX: R07.89 Other chest pain (principal); F41.9 Anxiety disorder, unspecified; E87.6 Hypokalemia; Z90.710 Acquired absence of both cervix and uterus; I95.9 Hypotension, unspecified; Z90.49 Acquired absence of other specified parts of digestive tract; Z88.8 Allergy status to other drugs, medicaments and biological substances; R42 Dizziness and giddiness
CPT/HCPCS: 36415; 70450; 71275; 80048; 80053; 80061; 82553; 83615; 83690; 83735; 83880; 84484; 85025; 85379; 85610; 85651; 85730; 86140; 93005; 93306; 96361; 96374; 96375; C9113; J2060; J2405; J3010; Q0169; Q9967; 99285-25; J7030

== ENCOUNTER → 2020-09-01 | Outpatient (CLI) | payer MEDICARE, OTHER ==
[~2020-09-01] MED LIST: ASTA4CAP PO; CRAN450C PO; CYAN-25 PO; CYAN250012 PO; ESTR1PAT87 TD; LACT1CAP8 PO; MAGN100T3 PO; OMEG1CAP6 PO; TURM538C PO; UBID100C40 PO; UBID1CAP41 PO
--- NOTE | 2020-09-01 10:28 | RAD ---
EXAMINATION: BARIUM SWALLOW WITH VIDEOFLUOROSCOPY CLINICAL HISTORY: Dysphagia. Choking on saliva. TECHNIQUE: DG VIDEO SWALLOW STUDY -- 10 images Fluoroscopy Time: 1.5 minutes COMPARISON: None TECHNIQUE/FINDINGS: Modified barium swallow was performed in conjunction with Speech Pathology with fluoroscopic assistan ce provided by the radiologist. Patient was given various barium substrates for the speech pathologis t to evaluate the oropharyngeal phases of swallowing. The exam is recorded for review. No functional impairment with oropharyngeal swallow. No penetration or aspiration. IMPRESSION: No functional impairment with oropharyngeal swallow. No penetration or aspiration. See speech pathologist report for further details. Electronically signed by: Rogers Parry DO (09/01/2020 10:26 AM) [id number]
== END | disposition home or self-care (01) ==
LOC: DXRAD 09:25
PROVIDERS: ATTEND Internal Medicine Gastroenterology
DX: R13.12 Dysphagia, oropharyngeal phase (principal); F41.9 Anxiety disorder, unspecified; E04.2 Nontoxic multinodular goiter; Z90.49 Acquired absence of other specified parts of digestive tract; Z88.8 Allergy status to other drugs, medicaments and biological substances; Z90.710 Acquired absence of both cervix and uterus; Z90.721 Acquired absence of ovaries, unilateral
CPT/HCPCS: 74230; 92611

== ENCOUNTER → 2020-11-02 | Outpatient (CLI) | payer MEDICARE, OTHER ==
--- NOTE | 2020-11-02 11:51 | RAD ---
INDICATION: Screening for osteopenia/osteoporosis. Postmenopausal evaluation. COMPARISON: 06/05/2017 TECHNIQUE: Bone densitometry was performed through the lumbar spine and proximal femur. IMPRESSION: Lumbar Spine: BMD: 1.13 T-Score: -0.4 Range: Normal. Decreased by 1 percent from baseline in 2008 Proximal Femur: BMD: 0.95 T-Score: 0 Range: Normal. Increased by 5 percent from baseline. World Health Organization Criteria for Bone Density: T-Score: > -1.0: Normal Range < -1.0 to -2.5: Osteopenic Range < -2.5: Osteoporotic Range Electronically signed by: Yuri Low MD (11/02/2020 11:48 AM) [id number]
== END ==
LOC: DXRAD 11:05
PROVIDERS: ATTEND Obstetrics & Gynecology
DX: Z01.411 Encounter for gynecological examination (general) (routine) with abnormal findings (principal); Z78.0 Asymptomatic menopausal state
CPT/HCPCS: 77080

== ENCOUNTER → 2021-03-22 | Outpatient (CLI) | payer MEDICARE, OTHER ==
--- NOTE | 2021-03-22 17:42 | RAD ---
US THYROID History: Reason: THYROID NODULE / Spl. Instructions: / History: Comparison: None. Technique: Multiple grayscale and color Doppler images of the thyroid gland were obtained. Findings: Right thyroid lobe: 5.3 x 1.4 x 0.7 cm. Homogeneous echotexture. Left thyroid lobe: 4.6 x 1.4 x 0.7 cm. Homogeneous echotexture. Isthmus: 0.2 cm. -Solid hypoechoic right inferior thyroid nodule measures 8.5 x 0.4 x 0.3 cm. TI-RADS 4. Cystic nodule within the left inferior thyroid measures 0.5 cm. ACR Thyroid Imaging, Reporting And Data System (TI-RADS): White Paper Of The ACR TI-RADS Committee. J ournal of the [place] [employer], volume 14, issue 5, pages 587-595 (September 2016). IMPRESSION: 1. Thyroid 4 right inferior thyroid nodule. Recommend one-year ultrasound follow-up. Electronically signed by: Deyvi Oakes DO (03/22/2021 5:39 PM) [id number]
== END ==
LOC: US 09:50
PROVIDERS: ATTEND Family Medicine
DX: E04.2 Nontoxic multinodular goiter (principal)
CPT/HCPCS: 76536

== ENCOUNTER → 2021-04-25 | Outpatient (CLI) | payer MEDICARE, OTHER ==
[~2021-04-25] MED LIST changes: +CRAN200C2 PO; +GLUC100018 PO; +MAGN400C PO; +OMEG-33 PO; +PEPP30SP PO; +UBID30CA14 PO
--- NOTE | 2021-04-25 13:55 | NUR ---
PT ARRIVED TO UNIT VIA AMBULATION. PTS VS OBTAINED AND ARE STABLE. PT IS ASKED TO VOID AND THEN BLADDER SCANNED. RESULTS NOTED IN CHART. PT IS ESCORTED OF OF UNIT ACCOMPANIED BY STAFF.
[2021-04-25 14:00] VITALS: BP 135/73
== END | disposition home or self-care (01) ==
LOC: OPSVCOP 13:47
PROVIDERS: ATTEND Family Medicine
DX: R33.9 Retention of urine, unspecified (principal); Z90.710 Acquired absence of both cervix and uterus; Z98.890 Other specified postprocedural states; Z79.899 Other long term (current) drug therapy; Z88.6 Allergy status to analgesic agent; Z88.8 Allergy status to other drugs, medicaments and biological substances
CPT/HCPCS: 51798